=== PATIENT | female | born 1975 | race Caucasian/White ===

== ENCOUNTER 2020-08-21 11:14 | Inpatient (IN) | payer OTHER ==
[~2020-08-21] VITALS: Ht 157.5 cm; Wt 86.2 kg
[2020-08-21] MEDS ORDERED: AMITIZA24 MCG PO (11:52)
[2020-08-21] MEDS ORDERED: ZYRTEC10 M3 PO (11:52)
[2020-08-21] MEDS ORDERED: FLONASE16 GM NS (11:53)
[2020-08-21] MEDS ORDERED: XANAX0.25 MG PO (11:53)
== END 2020-08-28 14:45 | disposition home or self-care (01) | DRG 392 ==
LOC: ER 11:14 → MEDI 08-22 09:27
PROVIDERS: ADMIT Internal Medicine; ATTEND Internal Medicine
PROC: BW21ZZZ Computerized Tomography (CT Scan) of Abdomen and Pelvis (ICD-10-PCS; principal; 2020-08-22)
PROC: B54DZZZ Ultrasonography of Bilateral Lower Extremity Veins (ICD-10-PCS; 2020-08-25)
DX: K57.32 Diverticulitis of large intestine without perforation or abscess without bleeding (principal); Z20.822 Contact with and (suspected) exposure to COVID-19; E86.0 Dehydration; E66.8 Other obesity